=== PATIENT | male | born 1970 | race Caucasian/White ===

== ENCOUNTER 2025-01-13 15:45 | Outpatient (AMB) | payer OTHER, SELFPAY ==
--- NOTE | 2025-01-13 15:51 | MHC.OFFVIS ---
Vital Signs 01/13/25 15:52 Height 5 ft 11 in Weight 294 lb 5.074 oz BMI 41.0 BP 110/82 Blood Pressure Location Lt brachial Position Sitting Pulse 83 Pulse Source Pulse Oximeter Pulse Oximetry (%) 97 Oxygen Delivery Method Room Air Intake Visit Reasons: Obstructive sleep apnea Intake Note: pt is here as a new patient, had sleep study in past but was never set up with cpap, covid x4, and he states he snores when on his back, and gasping for air. 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 HE HAD A POLYSOMNOGRAM STUDY IN THE SLEEP LAB IN 2012, AND WAS NOTED TO HAVE MILD OBSTRUCTIVE SLEEP APNEA. HOWEVER THERE WAS NO CONTINUED FOLLOW-UP AND HE DID NOT HAVE ANY CPAP . 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 FOR MANY YEARS HE IS AWARE OF THE FACT THAT HE SNORES HEAVY AT NIGHT ESPECIALLY WHEN HE SLEEPS IN SUPINE POSITION. HE ALSO HAS FREQUENT GASPING LIKE FEELING WITH AWAKENINGS, AGAIN MORE SO WHEN HE SLEEPS IN SUPINE POSITION. DURING THE DAYTIME IF HE IS WORKING ACTIVELY HE CAN KEEP AWAKE BUT, WHEN HE IS NOT WORKING HE TENDS TO DOZE OFF FREQUENTLY. HE HAS HAD A FEW OCCASIONS WHEN HE FELT DROWSY WHEN DRIVING. IF HIS IS DRIVING ON A LONG DISTANCE HE TENDS TO FALL ASLEEP. ALSO WHEN HE IS SITTING ON THE SOFA WATCHING TV HE DEFINITELY FALLS ASLEEP. HIS WEIGHT HAS GRADUALLY BEEN CREEPING UP. HE IS NOT IN ANY WEIGHT MANAGEMENT PROGRAM. AND HE IS NOT IN ANY SPORTS. HE ALSO HAS OCCASIONAL WHEEZING AND GETS SHORT OF BREATH WHEN HE WALKS FAST OR CLIMBS STAIRS. DID SUFFERED FROM COVID INFECTION A FEW TIMES IN THE PAST FEW YEARS, AND SINCE THEN HE HAS BECOME MORE AWARE OF SHORTNESS OF BREATH ON EXERTION. SOMETIMES HE FEELS DISCOMFORT IN THE STERNUM AREA WHEN HE BENDS AND PICKS UP SOMETHING. HE IS NONSMOKER NONDRINKER, DENIES ANY ADDICTION. HE DOES HAVE MILD HYPERTENSION WHICH IS BEING TREATED WITH SMALL DOSE OF LOSARTAN. [facility] Medical History (Updated 01/13/25 @ 16:36 by Bella Gilmore MD) Somnolence, daytime Snoring Morbid obesity Social History Patient Tobacco Use Status: Former Tobacco user Review of Systems Const All systems reviewed & are unremarkable except as noted in HPI and below Eyes Reports no additional complaints ENT Reports no additional complaints Card Denies chest pain at rest, Denies dyspnea on exertion and Denies orthopnea Resp Reports as per HPI and Denies dyspnea on exertion GI Reports no additional complaints Reports no additional complaints Musc Reports no additional complaints Skin/Breast Reports system reviewed and no additional complaints, except as documented Neuro Reports no additional complaints Psych Reports no additional complaints Endo Reports no additional complaints Teja/Lymph Reports no additional complaints Aller/Immun Reports no additional complaints Physical Exam Vital Signs: Last Vital Signs Pulse 83 01/13/25 15:52 BP 110/82 01/13/25 15:52 Pulse Ox 97 01/13/25 15:52 Oxygen Delivery Method Room Air 01/13/25 15:52 BMI result Body Mass Index 41.0 Const General: healthy appearing (EXCEPT FOR BEING OVERWEIGHT), comfortable, no acute distress, alert and awake Orientation/consciousness: patient oriented x3 HEENT Head: Yes normal to inspection General nose exam: No nasal polyps present and No nasal discharge present Face and sinus: Yes sinuses nontender Mouth: oropharynx abnormals (NARROW AND CROWDED, MALLAMPATI SCALE 3) Throat: Yes posterior oropharynx normal Eyes General: appearance normal, both eyes and all related structures Neck Neck: Yes normal visual inspection, Yes no lymphadenopathy, Yes trachea midline, Yes no JVD and Yes other (NECK CIRCUMFERENCE 18-1/2 INCH) Thyroid: Thyroid normal Chest Chest palpation & inspection: normal inspection of the chest, normal palpation of entire chest wall and no tenderness Resp Effort & Inspection: normal respiratory effort Auscultation: clear to auscultation bilaterally, no crackles, no rhonchi and no wheezes Cardio Palpation: normal PMI Rate: regular rate Rhythm: regular rhythm Heart sounds: no gallops and no murmurs Peripheral pulses: Peripheral pulses 2+ throughout GI Palpation (GI): Soft to palpation, nontender, No hepatosplenomegaly present and no masses Auscultation: normal bowel sounds Back/Spine/Pelvis Thoracic/Lumbar Spine: thoracic and lumbar spine normal to inspection Skin General skin exam: no rashes or lesions noted Neuro General: patient oriented x3 and no focal motor deficits Cranial nerves: Yes CN's II-XII intact bilaterally Extrem General: Yes normal to inspection, Yes no clubbing, cyanosis or edema and Yes no calf tenderness Psych Appearance: grossly normal and well kempt Speech and movement: Normal speech and movement present Results Reviewed Results Reviewed: EPWORTH SLEEPINESS SCALE 17 Assessment & Plan Assessment & Plan (1) Morbid obesity: Comment: HE IS MORBIDLY OBESE WITH BMI 41. SAY IS THAT HIS WEIGHT HAS BEEN CREEPING UP IN THE LAST FEW YEARS. Code(s): E66.01 - Morbid (severe) obesity due to excess calories Category: Medical Plan: TALKED ABOUT THE WEIGHT AND ADVISED THAT HE NEEDS TO JOIN A WEIGHT MANAGEMENT PROGRAM. AND IF HE CAN NOT JOIN THE PROGRAM AT LEAST HE NEEDS TO TALK TO A DIETITIAN AND MANAGE HIS DIET, HE ALSO NEEDS TO START WALKING 2-3 MILES EVERY DAY. HE IS FULLY AWARE OF HIS OBESITY AND IS MOTIVATED TO LOSE WEIGHT. (2) Snoring: Comment: HE HAS FREQUENT SNORING AT NIGHT ESPECIALLY WHEN HE LIES IN SUPINE POSITION. THIS IS DEFINITELY INDICATING TO HAVING SLEEP APNEA. Code(s): R06.83 - Snoring Category: Medical Plan: HE WOULD NEED HIS SLEEP STUDY (3) Somnolence, daytime: Comment: HE HAS SIGNIFICANT DEGREE OF DAYTIME SLEEPINESS, EPWORTH SLEEPINESS SCALE= 17 Code(s): R40.0 - Somnolence Category: Medical Plan: PATIENT NEEDS TO HAVE SLEEP STUDY. TALKED TO HIM IN DETAIL AND HE IS ANXIOUS. TO UNDERGO THE STUDY HE IS QUITE SURE THAT HE IS HAVING SLEEP APNEA, AND IS ANXIOUS WELL MOTIVATED TO START USING CPAP THERAPY. DOES SOME GOING TO ORDER A HOME-BASED SLEEP STUDY. Orders: Orders RT home sleep study Today E66.01 - Morbid (severe) obesity due to excess calories, R06.83 - Snoring, R40.0 - Somnolence Coding Level of Care Code New Pt Level 4 (83711) Diagnoses Morbid obesity E66.01 Snoring R06.83 Somnolence, daytime R40.0
[2025-01-13 15:52] VITALS: BP 110/82; PULSE 83; O2SAT 97; BMI 41.0
--- OUTSIDE RECORDS SUMMARY | 2025-01-13 16:09 | XMS_ITS | Clinical Summary ---
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 2 Active aspirin 81 mg EC tablet Take 1 Tablet by mouth daily. 2 Active DULoxetine (CYMBALTA) [address] capsule TAKE 1 CAPSULE BY MOUTH EVERY DAY 2 Active miconazole nitrate 2 % aerosol,spray Apply 1 Applicator topically daily. 3 Active atorvastatin (LIPITOR) 10 mg tablet Take 1 tablet (10 mg total) by mouth 1 (one) time each day. 30 each 5 4 Active LORazepam (ATIVAN) 0.5 mg tablet Take 1 tablet (0.5 mg total) by mouth every 6 (six) hours if needed for anxiety. Active polyethylene glycol (Golytely) 236-22.74-6.74 -5.86 gram solutionIndicat ions:Colon cancer screening Take 4L by mouth once for one dose. May substitue any PEG. Starting at 6PM the night before your procedure drink 1 8oz glasses at your own pace until you complete half of the gallon. Finish 2nd half of the gallon 5 hours before your procedure. 4000 mL 5 Active bisacodyL (DULCOLAX) 5 mg EC tabletIndicatio ns:Colon cancer screening Take 2 tablets by mouth right before beginning bowel prep. See instructions provided by the office 2 tablet 5 Active omega 5-ibv-mvx-fish oil 1,000 (120-180) mg capsule Take 1 capsule (1,000 mg total) by mouth 1 (one) time each day. 4 Active hydrOXYzine HCL (ATARAX) 25 mg tablet Take 1 tablet (25 mg total) by mouth. 4 Active losartan (COZAAR) 50 mg tablet TAKE 1 TABLET BY MOUTH 1 TIME EACH DAY. 90 tablet 1 5 Active Active Problems Problem Noted Date Diagnosed Date Hyperlipidemia 01/22/2018 Hypertriglyceridemia 01/22/2018 Hypertension 01/22/2018 Obesity 06/20/2014 Obstructive sleep apnea 05/28/2013 Encounters Date Type Department Care Team Description 11/25/2024 Telephone [facility] Occupational Therapy [address] [phone] Vega Anderson, OT 11/13/2024 8:15 AM EDT Treatment [facility] Occupational Therapy [address] [phone] Vega Anderson, OT Right hand weakness (Primary Dx) 11/05/2024 12:30 PM EDT Evaluation [facility] Occupational Therapy [address] [address] Vega Anderson, OT Right hand weakness 11/05/2024 Plan of Care Documentation [facility] Occupational Therapy [address] [phone] 10/30/2024 10:30 AM EDT Consult Orthopedic Surgery - [place] 175 [facility] [address] [place] [phone] Arnoldo Simmons MD Right hand weakness (Primary Dx); Numbness of finger; Chronic wrist pain, right; Postoperative state; Right carpal tunnel syndrome from Last 3 Months Immunizations Name Administration Dates Next Due [employer] SARS-CoV-2 COVID -19, vector-nr, [id number], preservative free 08/28/2020 Tdap Tetanus diptheria acell ular pertussis (Boostrix; Adacel) 7yo and older 02/25/2013 Surgical History Surgery Date Site/Laterality Comments ORIF WRIST FRACTURE 03/29/2024 - 04/27/2024 Right Medical History Medical History Date Comments Hyperlipidemia 01/22/2018 DX:Hyperlipidemi a Hypertension 01/22/2018 DX:Hypertension Hypertriglyceridemia 01/22/2018 DX:Hypertri glyceridemia Obesity 06/20/2014 DX:Obesity Obstructive sleep apnea 05/28/2013 DX:Obstr uctive sleep apnea History of COVID-19 02/23/2021 DX:History o f COVID-19 Social History Tobacco Use Types Packs/Day Years Used Date Smoking Tobacco: Never Smokeless Tobacco: Never Alcohol Use Standard Drinks/Week Comments No 0 (1 standard drink = 0.6 oz pur e alcohol) Sex and Gender Information Value Date Recorded Sex Assigned at Male 07/01/2024 8:13 AM EST Legal Sex Male 8:29 AM EST Gender Identity Male 07/01/2024 8:13 AM EST Sexual Orientation Straight 07/01/2024 8: 13 AM EST Obstetrics History Last Filed Vital Signs Vital Sign Reading Time Taken Comments Blood Pressure 128/80 10/10/2024 3:54 PM EDT Pulse 100 10/10/2024 3:54 PM EDT Temperature 36.3 C (97.3 F) 10/10/2024 3:54 PM EDT Respiratory Rate - - Oxygen Saturation 97% 10/10/2024 3:54 PM EDT Inhaled Oxygen Concentration - - Weight 129 kg (285 lb) 10/30/2024 10:52 AM EDT Height 180.3 cm (5' 11 ) 10/30/2024 10:52 AM EDT Body Mass Index 39.75 10/30/2024 10:52 AM EDT Plan of Treatment Upcoming Encounters Date Type Department Care Team (Late st Contact Info) Description 02/24/2025 3:00 PM EDT Office Visit Internal Medicine - [place] 175 [facility] [address] [place] [phone] Asif Leal MD 175 [facility] [address] [place] [address] Health Maintenance Due Date Last Done Comments Hepatitis B Vaccines (1 of 3 - 19+ 3-dose series) 1987 Pneumococcal Vaccine: 50+ Years (1 of 1 - PCV) 2018 Zoster Vaccines (1 of 2) 2018 Colorectal Cancer Screening: Colonoscopy 05/01/2022 HIV Screening 05/01/2022 Hepatitis C Screening 05/01/2022 Social Influencers of Health Screening 05/01/2022 COVID-19 Vaccine (2 - 2023-2 5 season) 2024 08/28/2020 Influenza Vaccine (#1) 2025 Hypertension/CHF/CAD Annual BMP Blood Test 05/23/2025 05/23/2024, 08/25/2021 Cholesterol Screening (Lipid Panel) 05/23/2029 05/23/2024, 08/25/2021 DTaP,Tdap,and Td Vaccines (3 - Td or Tdap) 04/03/2034 04/03/2024, 02/25/2013 Depression Screening Completed 08/16/2024 HIB Vaccines Aged Out No longer eligi ble based on patient's age to complete this topic HPV Vaccines Aged Out No longer eligi ble based on patient's age to complete this topic Hepatitis A Vaccines Aged Out No long er eligible based on patient's age to complete this topic IPV Vaccines Aged Out No longer eligi ble based on patient's age to complete this topic MMR Vaccines Aged Out No longer eligi ble based on patient's age to complete this topic Meningococcal ACWY Vaccine Aged Out N o longer eligible based on patient's age to complete this topic Meningococcal B Vaccine Aged Out No l onger eligible based on patient's age to complete this topic RSV Immunization Patients Under 20 months Aged Out No longer eligible b ased on patient's age to complete this topic Varicella Vaccines Aged Out No longer eligible based on patient's age to complete this topic Goals Goal Patient Goal Type Associated Problems Recent Progress Patient-Stated? 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 strength >= 44 to be able to hold a tool, Patient will demo improved functional use of R upper extremity as evidenced by Quick Dash score <= 65 to be able to carry a shopping bag with moderate difficulty, and Patient will perform initial HEP MOD I LTG 12 visits General Vega King, OT Note: Patient will report <=4/10 pain in R digits 3,4/wrist/forearm, Patient will demo R wrist flexion AROM >= 50* to be able to use a wrench Patient will demo R electronic musical instrument repairer strength >= 50# to be able to unscrew a nut, Patient will demo improved functional use of R upper extremity as evidenced by Quick Dash score <= 40 to be able to perform IADls, and Patient will perform HEP MOD I Procedures Procedure Name Priority Date/Time Associated Diagnosis Comments XR WRIST 2 VIEWS RIGHT Routine 11:39 AM EDT Chronic wrist pain, right XR WRIST 3+ VIEWS RIGHT Routine 10/30/2024 10:21 AM EDT Chronic wrist pain, right COMPREHENSIVE METABOLIC PANEL Routine 05/23/2024 12:19 PM EST Pure hypercholesterolemi a Primary hypertension Class 1 obesity without serious comorbidity in adult, unspecified BMI, unspecified obesity type LIPID PANEL WITH REFLEX TO DIRECT LDL Routine 05/23/2024 12:19 PM EST Pure hypercholesterolemi a Primary hypertension Class 1 obesity without serious comorbidity in adult, unspecified BMI, unspecified obesity type from Last 3 Months or Most Recently Relevant to Health Maintenance Results * XR Wrist 2 Views Right (10/30/2024 11:39 AM EDT) Anatomical Region Laterality Modality Upper Extremities, Wrist Right Compute d Radiography Narrative 10/30/2024 12:45 PM EDT Three-view x-rays of the right wrist shows volar plate fixation of distal radius with hardware position without evidence of fracture or kelsi-implant loosening. Radial styloid fixation appears to be with in subchondral bone difficult assess on the radiographs whether this is interosseous. Repeat lateral x-rays with increased radial inclination show radial styloid fixation to be intraosseous and extra-articular. There is chronic appearing ulnar styloid avulsion fracture. There is normal carpal alignment. Impression: Previous distal radius volar plate fixation with healed distal radius fracture. us Arnoldo Simmons MD IMG XR PROCEDURES Final Result * XR Wrist 3+ Views Right (10/30/2024 10:21 AM EDT) Anatomical Region Laterality Modality Upper Extremities, Wrist Right Compute d Radiography Narrative 10/30/2024 12:45 PM EDT Three-view x-rays of the right wrist shows volar plate fixation of distal radius with hardware position without evidence of fracture or kelsi-implant loosening. Radial styloid fixation appears to be with in subchondral bone difficult assess on the radiographs whether this is interosseous. Repeat lateral x-rays with increased radial inclination show radial styloid fixation to be intraosseous and extra-articular. There is chronic appearing ulnar styloid avulsion fracture. There is normal carpal alignment. Impression: Previous distal radius volar plate fixation with healed distal radius fracture. us Arnoldo Simmons MD IM XR PROCEDURES Final Result * (ABNORMAL) Lipid panel with reflex to direct LDL (05/23/2024 12:19 PM EST) Cholesterol 218(H) 0 - 200 mg/dL LAB CHEMISTRY METHOD 05/23/2024 2:39 PM [facility] Triglycerides 196(H) 0 - 150 mg/dL LAB CHEMISTRY METHOD 05/23/2024 2:39 PM [facility] HDL 34(L) >=40 mg/dL LAB CHEMISTRY METHOD 05/23/2024 2:39 PM [facility] LDL Calculated 145(H) 0 - 100 mg/dL LAB CHEMISTRY METHOD 05/23/2024 2:39 PM [facility] VLDL Cholesterol Marcel 39.2 mg/dL LAB CHEMISTRY METHOD 05/23/2024 2:39 PM [facility] Non HDL Chol. (LDL+VLDL) 184(H) <145 mg/dL LAB CHEMISTRY METHOD 05/23/2024 2:39 PM [facility] Chol/HDL Ratio 6.4(H) 0.0 - 4.4 LAB CHEMISTRY METHOD 05/23/2024 2:39 PM [facility] Blood Venous blood specimen / Unknown Venipuncture / Unknown 05/23/2024 12:19 PM EST 05/23/2024 12:19 PM EST us Asif Leal MD LAB BLOOD ORDERABLES Final Resul t [facility] [address] [place] [address], [place] [phone] * Comprehensive metabolic panel (05/23/2024 12:19 PM EST) Sodium 139 133 - 145 mmol/L LAB CHEMISTRY METHOD 05/23/2024 2:39 PM [facility] Potassium 4.2 3.5 - 5.5 mmol/L LAB CHEMISTRY METHOD 05/23/2024 2:39 PM [facility] Chloride 108 96 - 110 mmol/L LAB CHEMISTRY METHOD 05/23/2024 2:39 PM [facility] CO2 26 21 - 32 mmol/L LAB CHEMISTRY METHOD 05/23/2024 2:39 PM [facility] Anion Gap 5 3 - 11 LAB CHEMISTRY METHOD 05/23/2024 2:39 PM [facility] Glucose 99 70 - 100 mg/dL LAB CHEMISTRY METHOD 05/23/2024 2:39 PM [facility] BUN 16 5 - 25 mg/dL LAB CHEMISTRY METHOD 05/23/2024 2:39 PM [facility] Creatinine 1.00 0.70 - 1.30 mg/dL LAB CHEMISTRY METHOD 05/23/2024 2:39 PM [facility] eGFR 88 >=60 mL/min/1. 73m2 LAB CHEMISTRY METHOD 05/23/2024 2:39 PM [facility] Comment:Calculation based on the Chronic Kidney Disease Epidemiology Collaboration (CKD-EPI) equation refit without adjustment for race. BUN/Creatinine Ratio 16.0 LAB CHEMISTRY METHOD 05/23/2024 2:39 PM [facility] Calcium 9.3 8.5 - 10.5 mg/dL LAB CHEMISTRY METHOD 05/23/2024 2:39 PM [facility] AST (SGOT) 18 10 - 42 unit/L LAB CHEMISTRY METHOD 05/23/2024 2:39 PM [facility] ALT (SGPT) 48 10 - 60 unit/L LAB CHEMISTRY METHOD 05/23/2024 2:39 PM [facility] Alkaline Phosphatase 85 42 - 121 unit/L LAB CHEMISTRY METHOD 05/23/2024 2:39 PM [facility] Total Protein 7.2 6.0 - 8.0 g/dL LAB CHEMISTRY METHOD 05/23/2024 2:39 PM [facility] Albumin 4.2 3.2 - 5.0 g/dL LAB CHEMISTRY METHOD 05/23/2024 2:39 PM [facility] Total Bilirubin 0.7 0.0 - 1.4 mg/dL LAB CHEMISTRY METHOD 05/23/2024 2:39 PM [facility] Blood Venous blood specimen / Unknown Venipuncture / Unknown 05/23/2024 12:19 PM EST 05/23/2024 12:19 PM EST us Asif Leal MD LAB BLOOD ORDERABLES Final Resul t [facility] [address] [place] [address], from Last 3 Months or Most Recently Relevant to Health Maintenance Insurance [employer] Care Teams Tornado Chaser Relationship Specialty Start Date End Date Asif Leal MD 175 [facility] [address] [place] [address] PCP - General Internal Medicine 07/01/24
== END 2025-01-13 16:24 | disposition home or self-care (01) ==
LOC: HO.HPS 15:46
PROVIDERS: PCP Internal Medicine; Visit Provider Internal Medicine
DX: E66.01 Morbid (severe) obesity due to excess calories (principal); R06.83 Snoring; R40.0 Somnolence
CPT/HCPCS: 99204